=== PATIENT | female | born 1950 | race Caucasian/White ===

== ENCOUNTER → 2017-03-17 | Outpatient (CLI) | payer MEDICARE, OTHER, MEDICAID ==
[~2017-03-17] MED LIST: CA C PO; CLOM50CA10 PO; CLON0.5T62 PO; IBUP-1264 PO; MULT-806 PO; RANI-45 PO; ZIPR20CA9 PO; [UNRECOGNIZED DRUG - CODE] PO
== END ==
LOC: WC.BC 14:53
DX: Z12.31 Encounter for screening mammogram for malignant neoplasm of breast (principal); N60.11 Diffuse cystic mastopathy of right breast
CPT/HCPCS: 77063; G0202